=== PATIENT | male | born 1985 | race Caucasian/White ===

== ENCOUNTER 2021-05-22 22:51 | Observation (INO) ==
[2021-05-23] MEDS: 0.9 % Sodium Chloride 1,000 ML IVC SCH ×2 (02:39→18:34)
[2021-05-23] MEDS: Ondansetron 4 MG/2 ML VIAL IVP PRN ×3 (02:39→14:11)
[2021-05-23] MEDS: MetroNIDAZOLE 500 MG/100 ML 500 MG/100 ML BAG IVPB SCH ×3 (05:02→18:31)
[2021-05-23] MEDS ORDERED: Piperacillin/Tazobactam 3.375 GM in 0.9 % Sodium Chloride Mini Bag 100 ML IVPB SCH (07:00)
[2021-05-23] MEDS ORDERED: *HR* OxyCODONE Immed Rel 5 MG TABLET PO PRN (08:58)
[2021-05-23] MEDS ORDERED: *HR* HYDROmorphone PF 0.5 MG/0.5 ML SYRINGE IVP PRN (08:58)
[2021-05-23] MEDS ORDERED: *HR* FentaNYL (PF) 100 MCG/2 ML VIAL IVP PRN (08:58)
[2021-05-23] MEDS ORDERED: *HR* FentaNYL (PF) 100 MCG/2 ML VIAL ONE (11:35)
[2021-05-23] MEDS ORDERED: *HR* Propofol 200 MG/20 ML VIAL IVP ONE (11:37)
[2021-05-23] MEDS ORDERED: *HR* Midazolam HCl 2 MG/2 ML VIAL ONE (11:37)
[2021-05-23] MEDS ORDERED: *HR* Succinylcholine 200 MG/10 ML VIAL IVP ONE (11:41)
[2021-05-23] MEDS ORDERED: Lidocaine -MPF 2% 2 ML VIAL ONE (11:41)
[2021-05-23] MEDS ORDERED: *HR* Rocuronium Bromide 50 MG/5 ML VIAL ONE (11:41)
[2021-05-23] MEDS ORDERED: Ondansetron 4 MG/2 ML VIAL ONE (11:41)
[2021-05-23] MEDS ORDERED: Lidocaine -MPF 4% 5 ML AMPUL ONE (11:45)
[2021-05-23] MEDS ORDERED: CefOXitin 1,000 MG VIAL ONE (12:47)
[2021-05-23] MEDS ORDERED: Acetaminophen IV 1,000 MG/100 ML BAG IVPB ONE (12:53)
[2021-05-23] MEDS ORDERED: EPHEDrine 50 MG/ML VIAL ONE (13:16)
[2021-05-23] MEDS: *HR* HYDROmorphone PF 0.5 MG/0.5 ML SYRINGE IVP PRN ×3 (14:09→14:26)
[2021-05-23] MEDS ORDERED: 0.9 % Sodium Chloride 1,000 ML IVC SCH (16:26)
[2021-05-23] MEDS ORDERED: Ondansetron 4 MG/2 ML VIAL IVP PRN (16:26)
[2021-05-23] MEDS ORDERED: *HR* OxyCODONE/APAP 5/325 TABLET PO PRN (16:26)
[2021-05-24] MEDS: MetroNIDAZOLE 500 MG/100 ML 500 MG/100 ML BAG IVPB SCH (00:13)
[2021-05-24] MEDS ORDERED: Ibuprofen 800 MG TABLET PO ONE (08:18)
[2021-05-24] MEDS ORDERED: hydrOXYzine pamoate 25 MG CAPSULE PO SCH (09:00)
[2021-05-24 09:27] VITALS: BP 149/81; PULSE 90; TEMP 98.2; O2SAT 97
== END 2021-05-24 11:10 | disposition home or self-care (01) ==
LOC: 3ANU
PROVIDERS: ADMIT Surgery; ATTEND Surgery